=== PATIENT | female | born 1995 | race Caucasian/White ===

== ENCOUNTER → 2019-05-09 | Outpatient (CLI) | payer OTHER ==
--- NOTE | 2019-05-09 13:34 | RAD ---
Examination: Ultrasound kidneys HISTORY: History of pain COMPARISON: None available. FINDINGS: The right kidney measures 11.1 x 5.7 x 5.1 cm. The left kidney measures 12.1 x 4.7 x 5.0 cm. The visualized aorta, IVC within normal limits of dimension. The bladder volume postvoid mediastinum. No evidence of hydronephrosis. IMPRESSION: Unremarkable visualized exam. Electronically signed by: Jeremiah Casillas MD (05/09/2019 1:31 PM) [place] [id number]
== END | disposition home or self-care (01) ==
LOC: PMG 08:51
PROVIDERS: ATTEND Physician Assistant Medical
DX: R10.9 Unspecified abdominal pain (principal)
CPT/HCPCS: 76770